=== PATIENT | male | born 1995 | race Caucasian/White ===

== ENCOUNTER 2024-05-03 10:44 | Emergency (ER) | payer OTHER ==
[~2024-05-03] VITALS: Ht 185.4 cm; Wt 86.2 kg
[2024-05-03 10:59] VITALS: TEMP 98
[2024-05-03 11:37] LABS: CALCIUM, SERUM 8.8 mg/dL (8.5-10.1); CARBON DIOXIDE 28 mmol/L (21-32); CHLORIDE 103 mmol/L (98-107); CREATININE 1.1 mg/dL (0.6-1.3); GLUCOSE 99 mg/dL (74-106); POTASSIUM 4.1 mmol/L (3.5-5.1); SODIUM SERUM 135 mmol/L (136-145); UREA NITROGEN, BLOOD 21 mg/dL (7-18)
[2024-05-03 11:39] LABS: BASOPHILS % (AUTO) 0.4 % (0.0-2.0); EOSINOPHILS % (AUTO) 0.4 % (0.0-6.0); HEMATOCRIT 38 % (39-51); HEMOGLOBIN 13.3 g/dL (13.5-17.5); LYMPHOCYTES # (AUTO) 0.5 K/uL (0.8-4.8); LYMPHOCYTES % (AUTO) 15.8 % (20.0-44.0); MEAN CORPUSCULAR HEMOGLOBIN 30 PG (26.0-33.0); MEAN CORPUSCULAR HGB CONC 35 g/dl (31.0-36.0); MEAN CORPUSCULAR VOLUME 84 fL (80-96); MONOCYTES # (AUTO) 0.1 K/uL (0.1-1.30); NEUTROPHILS # (AUTO) 2.6 K/uL (1.8-8.9); NEUTROPHILS % (AUTO) 81.4 % (43.0-81.0); PLATELET COUNT (AUTO) 135 K/uL (150-450); RED CELL DISTRIBUTION WIDTH 12.6 % (11.5-15.0); WHITE BLOOD COUNT (AUTO) 3.2 K/uL (4.3-11.0)
[2024-05-03] MEDS: IV NS 0.9% 1,000 ML BAG IV ONE (11:57)
[2024-05-03 12:40] VITALS: BP 110/70; O2SAT 96
== END 2024-05-03 12:47 | disposition home or self-care (01) ==
LOC: ER 10:51
DX: R55 Syncope and collapse (principal); D61.818 Other pancytopenia; R11.0 Nausea; R41.0 Disorientation, unspecified; G43.909 Migraine, unspecified, not intractable, without status migrainosus; R53.83 Other fatigue; Z98.890 Other specified postprocedural states; Z87.39 Personal history of other diseases of the musculoskeletal system and connective tissue
CPT/HCPCS: 99285; 96360; 71045; 93005; 85025; 80048; 36415; 84484; 82962; J7030